=== PATIENT | female | born 1970 | race Two or more races ===

== ENCOUNTER → 2025-03-13 16:00 | Outpatient (REF) | payer MEDICAID, SELFPAY ==
[2025-03-14 15:13] LABS: ALB/GLOB Ratio 1.5 RATIO (0.9-2.4); AST(SGOT) 84 U/L (<=31); Alanine Aminotransfer ALT/SGPT 74 U/L (<=34); Albumin, Serum 4.2 g/dL (3.5-5.0); Alkaline Phosphatase 157 U/L (35-104); Amylase 11 U/L (28-100); Anion Gap 14 (5-15); BUN 12 mg/dL (4-19); Calcium,Total 9.8 mg/dL (7.6-11.0); Carbon Dioxide 24.9 mmol/L (21.0-32.0); Chloride 97 mmol/L (98-108); Creatinine, Serum 0.76 mg/dL (0.70-1.20); EST Glomerular Filtration Rate 92 (>60); Globulin 2.9 g/dL (2.2-4.2); Glucose 226 mg/dL (70-99); Lipase 20 U/L (13-75); Potassium 4.5 mmol/L (3.3-5.1); Protein, Total 7.1 g/dL (5.9-8.4); Sodium Level 136 mmol/L (133-145); Total Bilirubin 0.52 mg/dL (0.00-1.30)
[2025-03-18 10:08] LABS: G6PD Quant Test 258 (127-427); Red Blood Cell Count Test/G6PD 4.41 x10E6/uL (3.77-5.28)
== END ==
LOC: LABSPEC 16:00
PROVIDERS: PCP Nurse Practitioner Family; Referring Provider Nurse Practitioner Family; Visit Provider Nurse Practitioner Family
DX: A69.20 Lyme disease, unspecified (principal); A44.9 Bartonellosis, unspecified; E11.8 Type 2 diabetes mellitus with unspecified complications; Z77.120 Contact with and (suspected) exposure to mold (toxic); G47.30 Sleep apnea, unspecified; K71.7 Toxic liver disease with fibrosis and cirrhosis of liver; L73.2 Hidradenitis suppurativa; K50.90 Crohn's disease, unspecified, without complications; R53.82 Chronic fatigue, unspecified; G89.29 Other chronic pain; R00.2 Palpitations; R61 Generalized hyperhidrosis; G47.00 Insomnia, unspecified; H93.19 Tinnitus, unspecified ear; R25.0 Abnormal head movements; R41.89 Other symptoms and signs involving cognitive functions and awareness; N92.0 Excessive and frequent menstruation with regular cycle; B60.00 Babesiosis, unspecified
CPT/HCPCS: 80053; 82150; 82955; 83690